=== PATIENT | male | born 1970 | race Hispanic/Latino ===

== ENCOUNTER 2019-02-15 12:26 | Emergency (ER) | payer MEDICAID ==
[2019-02-15 12:41] VITALS: RESP 18; O2SAT 99
[2019-02-15] MEDS ORDERED: Lidocaine/Epi 1% 1:100000 20 ML IJ STA (13:01)
[2019-02-15] MEDS ORDERED: Tdap Vaccine 0.5 ml Vial (10-64 yrs) IM ONE ×3 (13:02→13:33)
[2019-02-15] MEDS ORDERED: Povidone Iodine Topical 10% Sol TOP STA (13:02)
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
[2019-02-15] MEDS ORDERED: Lidocaine 1% w Epi 1:100,000 Inj ONE (13:30)
[2019-02-15] MEDS ORDERED: Povidone Iodine Oint 10% Foilpak UD ONE (13:30)
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
[2019-02-15 15:13] VITALS: BP 143/76; PULSE 75; TEMP 98.2
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
--- NOTE | 2019-02-20 03:50 | OP ---
PROCEDURE DATE: 02/15/2019 PREOPERATIVE DIAGNOSIS: A 3-cm right upper lip laceration, through and through. POSTOPERATIVE DIAGNOSIS: A 3-cm right upper lip laceration, through and through. PROCEDURE PERFORMED: Complex repair of 3-cm lip laceration, stellate. SURGEON: Tiarra Baca MD ANESTHESIA: Regional. Right infraorbital nerve block. INDICATION FOR PROCEDURE: As follows: Please refer to my separately dictated ER consultation for history and physical. DESCRIPTION OF PROCEDURE: As follows: Lidocaine 1% was used in the regional nerve block as listed above. After allowing sufficient time for the anesthetic to take effect, the wound was thoroughly irrigated with normal saline. Any retained debris was manually removed. The area was prepped and draped in the usual clean and sterile manner. I debrided the irregular mucosa and skin edges with scissors technique. I used a 4-0 Monocryl to line up and approximate the orbicularis teresa muscle in an interrupted fashion. I used a 5-0 Monocryl to line up and approximate the subcutaneous tissue and deep dermis in interrupted fashion. I then closed the philtrum and epidermis with 5-0 Prolene using interrupted fashion. I used a 4-0 chromic in a running fashion and closed the inner mucosa after debriding the edges. The patient tolerated the procedure well, eventually discharged home with a stable condition. Postop wound care, limitation of physical activities, the fact there will be a scar, the prognosis of which is unknown were discussed and all questions were answered. Tiarra Baca MD
== END 2019-02-15 15:11 | disposition home or self-care (01) ==
LOC: H.ER 12:26
DX: S51.011A Laceration without foreign body of right elbow, initial encounter (principal); J32.0 Chronic maxillary sinusitis; Z23 Encounter for immunization; S01.81XA Laceration without foreign body of other part of head, initial encounter; Y04.0XXA Assault by unarmed brawl or fight, initial encounter; S01.511A Laceration without foreign body of lip, initial encounter